=== PATIENT | male | born 1985 | race Caucasian/White ===

== ENCOUNTER 2019-09-06 10:30 | Inpatient (IN) | payer OTHER ==
[2019-09-06 10:59] VITALS: BMI 27.6
--- NOTE | 2019-09-06 11:50 | HP ---
CIWA Score Nausea/Vomitin-Mild Nausea/No Vomiting Muscle Tremors: 4-Moderate,w/Arms Extend Anxiety: 4-Mod. Anxious/Guarded Agitation: 3 Paroxysmal Sweats: 4-Forehead w/Sweat Beads Orientation: 1-Uncertain about Date Tacttile Disturbances: 0-None Auditory Disturbances: 0-None Visual Disturbances: 2-Mild Sensitivity Headache: 4-Moderately Severe (intoxication due to alcohol) CIWA-Ar Total Score: 23 - Admission Criteria OASAS Guidelines: Admission for Medically Managed Detox: Requires at least one of the followin. CIWA greater than 12 2. Seizures within the past 24 hours 3. Delirium tremens within the past 24 hours 4. Hallucinations within the past 24 hours 5. Acute intervention needed for co occurring medical disorder 6. Acute intervention needed for co occurring psychiatric disorder 7. Severe withdrawal that cannot be handled at a lower level of care (continued vomiting, continued diarrhea, abnormal vital signs) requiring intravenous medication and/or fluids 8. Admitting History and Physical - Admission History of Present Illness: 34 year old male with history of alcohol dependence with withdrawals. He started drinking at the age of 24. He has been drinking recently binging up to 3 bottles of tequila daily. He last drank 1 day ago and blacked out and ended up in [facility] and given ativan there and ECG done due to palpitations because he substituted his drinking with gabapentin at very high doses. He was cleared and told to go to alcohol detox. See D/C papers from [facility]. He drank in the afternoon yesterday. He denies smoking ciggarettes and never smoked PMH: Anemia, Cirrhosis of liver Psurg: None He is domiciled but multiple relapses has occurred. History Source: Patient Limitations to Obtaining History: No Limitations Admission [facility] Allergies/Adverse Reactions: Allergies Allergy/AdvReac Type Severity Reaction Status Date / Time Penicillins AdvReac Severe Hives Verified 09/06/19 10:53 Exam Limitations: No Limitations - Ebola screening Have you traveled outside of the country in the last 21 days: No (N) Have you had contact with anyone from an Ebola affected area: No Have you been sick,other than usual withdrawal symptoms: No Do you have a fever: No - Review of Systems Constitutional: Chills, Diaphoresis, Changes in sleep EENT: reports: No Symptoms Reported Respiratory: reports: No Symptoms reported Cardiac: reports: No Symptoms Reported GI: reports: No Symptoms Reported : reports: No Symptoms Reported Musculoskeletal: reports: No Symptoms Reported Integumentary: reports: No Symptoms Reported Neuro: reports: No Symptoms reported Endocrine: reports: No Symptoms Reported Hematology: reports: No Symptoms Reported Psychiatric: reports: Agitated, Anxious Other Systems: Reviewed and Negative Patient History - Patient Medical History Hx Anemia: Yes Hx Asthma: No Hx Chronic Obstructive Pulmonary Disease (COPD): No Hx Cancer: No Hx Cardiac Disorders: No Hx Congestive Heart Failure: No Hx Hypertension: No Hx Hypercholesterolemia: No Hx Pacemaker: No HX Cerebrovascular Accident: No Hx Seizures: No Hx Dementia: No Hx Diabetes: No Hx Gastrointestinal Disorders: No Hx Liver Disease: Yes (cirrhosis) Hx Genitourinary Disorders: No Hx Sexually Transmitted Disorders: No Hx Renal Disease (ESRD): No Hx Thyroid Disease: No Hx Human Immunodeficiency Virus (HIV): No Hx Hepatitis C: No Hx Depression: No Hx Suicide Attempt: No Hx Bipolar Disorder: No Hx Schizophrenia: No - Patient Surgical History Past Surgical History: No - PPD History Previous Implant?: No Documented Results: Negative w/o proof Implanted On Prior [facility] Admission?: No PPD to be Administered?: Yes - Smoking Cessation Smoking history: Never smoked Have you smoked in the past 12 months: No Hx Chewing Tobacco Use: No Initiated information on smoking cessation: No - Substance & Tx. History Hx Alcohol Use: Yes (3 bottles of tequila) Substance Use Type: Alcohol Hx Substance Use Treatment: Yes (detox at [facility] [place]) - Substances abused Alcohol Substance route: Oral Frequency: Daily Amount used: 1-2.5 LITERS OF TEQUILA Age of first use: 24 Date of last use: 09/05/19 Admission Physical Exam [facility] - Vital Signs Vital Signs: Vital Signs - 24 hr 09/06/19 10:45 Temperature 98.4 F Pulse Rate 96 H Respiratory 18 Rate Blood Pressure 130/75 - Physical General Appearance: Yes: Mild Distress HEENTM: Yes: EOMI, Hearing grossly Normal, Normal ENT Inspection, Normocephalic , Normal Voice, BERTRAND, Pharynx Normal, Tm's normal Respiratory: Yes: Chest Non-Tender, Lungs Clear, Normal Breath Sounds, No Respiratory Distress, No Accessory Muscle Use Neck: Yes: No masses,lesions,Nodules, Supple, Trachea in good position Breast: Yes: Within Normal Limits Cardiology: Yes: Regular Rhythm, Regular Rate, S1, S2 Abdominal: Yes: Normal Bowel Sounds, Non Tender, Flat, Soft Genitourinary: Yes: Within Normal Limits Back: Yes: Normal Inspection Musculoskeletal: Yes: full range of Motion, Gait Steady, Pelvis Stable Extremities: Yes: Normal Capillary Refill, Normal Range of Motion, Non-Tender, Tremors Neurological: Yes: cardroom attendant II-XII NML intact, Fully Oriented, Alert, Motor Strength 5/5, Normal Mood/Affect, Normal Response Integumentary: Yes: Normal Color, Warm Lymphatic: Yes: Within Normal Limits - Diagnostic (1) Alcohol dependence with uncomplicated withdrawal Current Visit: Yes Status: Acute (2) Cirrhosis Current Visit: Yes Status: Acute Screened but not Admitted - Documentation of Visit Screened but not Admitted: No Breathalyzer - Breathalyzer Breathalyzer: 0.035 Inpatient Rehab Admission - Rehab Decision to Admit Inpatient rehab admission?: No
[2019-09-06] MEDS ORDERED: MENTHOL/PHENOL 1 EACH UD MM PRN (11:56)
[2019-09-06] MEDS ORDERED: MAGNESIUM CITRATE 300 ML BOTTLE PO PRN (11:56)
[2019-09-06] MEDS ORDERED: MAG HYDROX/AL HYDROX/SIMETH 30 ML UNIT-DOSE CUP PO PRN (11:56)
[2019-09-06] MEDS ORDERED: diazePAM 5 MG TABLET PO PRN (11:56)
[2019-09-06] MEDS ORDERED: ACETAMINOPHEN 325 MG TABLET (FP) PO PRN ×2 (11:56)
[2019-09-06] MEDS ORDERED: BISMUTH SUBSALICYLATE 524 MG/30 ML UD PO PRN (11:56)
[2019-09-06] MEDS ORDERED: METHOCARBAMOL 500 MG TABLET PO PRN (11:56)
[2019-09-06] MEDS ORDERED: IBUPROFEN 400 MG TABLET (FP) PO PRN (11:56)
[2019-09-06] MEDS ORDERED: MAGNESIUM HYDROX 2400MG/30ML ORAL SUSPENSION 30 ML CUP PO PRN (11:56)
--- NOTE | 2019-09-06 12:44 | EKG ---
Test Reason : Blood Pressure : / mmHG Vent. Rate : 086 BPM Atrial Rate : 086 BPM P-R Int : 124 ms QRS Dur : 090 ms QT Int : 372 ms P-R-T Axes : 049 063 053 degrees QTc Int : 445 ms NORMAL SINUS RHYTHM NORMAL ECG NO PREVIOUS ECGS AVAILABLE Confirmed by DENISE MCCRAY, ABNER ([id number]) on 09/06/2019 12:44:22 PM Referred By: Confirmed By:ABNER WALKER MD
[2019-09-06] MEDS: diazePAM 5 MG TABLET PO SCH ×2 (13:19→22:13)
[2019-09-06 14:13] LABS: HEMATOCRIT 44.1 % (35.4-49); HEMOGLOBIN 15.1 GM/dL (11.7-16.9); MCH 32.9 pg (25.7-33.7); MCHC 34.2 g/dl (32.0-35.9); MEAN CELL VOLUME 96.3 fl (80-96); MEAN PLT VOLUME 8.1 fl (7.5-11.1); PLATELET COUNT 84 K/MM3 (134-434); RBC 4.58 M/mm3 (4.00-5.60); RDW 13.8 % (11.9-15.9); WHITE BLOOD COUNT 6.3 K/mm3 (4.0-10.0)
[2019-09-06 14:23] LABS: ALBUMIN 4.1 g/dl (3.4-5.0); BILIRUBIN,TOTAL 2.7 mg/dL (0.2-1); BLOOD UREA NITROGEN 13.2 mg/dL (7-18); CALCIUM 9.1 mg/dL (8.5-10.1); CREATININE 0.7 mg/dL (0.55-1.3); POTASSIUM 3.9 mmol/L (3.5-5.1); TOT PROT 7.6 g/dl (6.4-8.2)
[2019-09-06] MEDS: THIAMINE HCL 100 MG TABLET (FP) PO SCH (22:13)
[2019-09-07] MEDS: hydrOXYzine PAMOATE 25 MG CAPSULE (FP) PO PRN (01:14)
[2019-09-07] MEDS: diazePAM 5 MG TABLET PO SCH (05:25)
--- NOTE | 2019-09-07 10:06 | PN ---
S CIWA - CIWA Score Nausea/Vomitin-Mild Nausea/No Vomiting Muscle Tremors: 2 Anxiety: 3 Agitation: 3 Paroxysmal Sweats: No Perspiration Orientation: 0-Oriented Tacttile Disturbances: 1-Very Mild Itch/Numbness Auditory Disturbances: 0-None Visual Disturbances: 0-None Headache: 2-Mild CIWA-Ar Total Score: 12 S Progress Note (SOAP) Subjective: alert,irritable,anxious,interrupted sleep,tremor Objective: 09/07/19 10:03 Vital Signs Temperature 98.2 F 09/07/19 09:42 Pulse Rate 86 09/07/19 09:42 Respiratory Rate 18 09/07/19 09:42 Blood Pressure 120/77 09/07/19 09:42 O2 Sat by Pulse Oximetry (%) Laboratory Last Values WBC 6.3 K/mm3 (4.0-10.0) 09/06/19 12:20 RBC 4.58 M/mm3 (4.00-5.60) 09/06/19 12:20 Hgb 15.1 GM/dL (11.7-16.9) 09/06/19 12:20 Hct 44.1 % (35.4-49) 09/06/19 12:20 MCV 96.3 fl (80-96) H 09/06/19 12:20 MCH 32.9 pg (25.7-33.7) 09/06/19 12:20 MCHC 34.2 g/dl (32.0-35.9) 09/06/19 12:20 RDW 13.8 % (11.9-15.9) 09/06/19 12:20 Plt Count 84 K/MM3 (134-434) L 09/06/19 12:20 MPV 8.1 fl (7.5-11.1) 09/06/19 12:20 Sodium 138 mmol/L (136-145) 09/06/19 12:20 Potassium 3.9 mmol/L (3.5-5.1) 09/06/19 12:20 Chloride 102 mmol/L (98-107) 09/06/19 12:20 Carbon Dioxide 29 mmol/L (21-32) 09/06/19 12:20 Anion Gap 7 MMOL/L (8-16) L 09/06/19 12:20 BUN 13.2 mg/dL (7-18) 09/06/19 12:20 Creatinine 0.7 mg/dL (0.55-1.3) 09/06/19 12:20 Est GFR (CKD-EPI)AfAm 144.72 09/06/19 12:20 Est GFR (CKD-EPI)NonAf 124.87 09/06/19 12:20 Random Glucose 95 mg/dL (74-106) 09/06/19 12:20 Calcium 9.1 mg/dL (8.5-10.1) 09/06/19 12:20 Total Bilirubin 2.7 mg/dL (0.2-1) H 09/06/19 12:20 AST 86 U/L (15-37) H 09/06/19 12:20 ALT 84 U/L (13-61) H 09/06/19 12:20 Alkaline Phosphatase 120 U/L (45-117) H 09/06/19 12:20 Total Protein 7.6 g/dl (6.4-8.2) 09/06/19 12:20 Albumin 4.1 g/dl (3.4-5.0) 09/06/19 12:20 Assessment: 09/07/19 10:04 withdrawal symptom Plan: continue detox,regimen changed from librium to ativan,history of cirrhosis, elevation af bilirubin,alt,ast,alk phosphatase patione ia also on gabapentini 300 mgs po tid,confirmed by pharmacist,repeat cmp,inr in am
--- NOTE | 2019-09-07 10:07 | PN ---
[facility] Progress Note Note: addendum regimen chaned from valium to ativan
[2019-09-07] MEDS ORDERED: LORazepam 1 MG TABLET PO PRN (10:09)
[2019-09-07] MEDS: PRENATAL VITAMINS W/ FOLIC ACID TABLET (FP) PO SCH (10:11)
[2019-09-07] MEDS: LORazepam 2 MG TABLET PO SCH ×3 (11:40→22:18)
[2019-09-07] MEDS: GABAPENTIN 300 MG CAPSULE (FP) PO SCH ×2 (13:39→22:18)
[2019-09-07] MEDS: THIAMINE HCL 100 MG TABLET (FP) PO SCH (22:18)
[2019-09-08] MEDS ORDERED: diazePAM 5 MG TABLET PO SCH (06:00)
[2019-09-08] MEDS: LORazepam 2 MG TABLET PO SCH ×4 (06:24→22:08)
[2019-09-08] MEDS: GABAPENTIN 300 MG CAPSULE (FP) PO SCH ×3 (06:24→22:08)
[2019-09-08] MEDS: PRENATAL VITAMINS W/ FOLIC ACID TABLET (FP) PO SCH (10:56)
--- NOTE | 2019-09-08 13:52 | PN ---
[facility] CIWA - CIWA Score Nausea/Vomitin-Mild Nausea/No Vomiting Muscle Tremors: 2 Anxiety: 3 Agitation: 0-Normal Activity Paroxysmal Sweats: 2 Orientation: 0-Oriented Tacttile Disturbances: 1-Very Mild Itch/Numbness Auditory Disturbances: 0-None Visual Disturbances: 1-Very Mild Sensitivity Headache: 0-None Present CIWA-Ar Total Score: 10 S Progress Note (SOAP) Subjective: c/o of feeling anxious, chills, interrupted sleep Objective: 09/08/19 13:51 Vital Signs Temperature 98.1 F 09/08/19 11:00 Pulse Rate 98 H 09/08/19 11:00 Respiratory Rate 18 09/08/19 11:00 Blood Pressure 134/78 09/08/19 11:00 O2 Sat by Pulse Oximetry (%) Laboratory Last Values WBC 6.3 K/mm3 (4.0-10.0) 09/06/19 12:20 RBC 4.58 M/mm3 (4.00-5.60) 09/06/19 12:20 Hgb 15.1 GM/dL (11.7-16.9) 09/06/19 12:20 Hct 44.1 % (35.4-49) 09/06/19 12:20 MCV 96.3 fl (80-96) H 09/06/19 12:20 MCH 32.9 pg (25.7-33.7) 09/06/19 12:20 MCHC 34.2 g/dl (32.0-35.9) 09/06/19 12:20 RDW 13.8 % (11.9-15.9) 09/06/19 12:20 Plt Count 84 K/MM3 (134-434) L 09/06/19 12:20 MPV 8.1 fl (7.5-11.1) 09/06/19 12:20 Sodium 138 mmol/L (136-145) 09/06/19 12:20 Potassium 3.9 mmol/L (3.5-5.1) 09/06/19 12:20 Chloride 102 mmol/L (98-107) 09/06/19 12:20 Carbon Dioxide 29 mmol/L (21-32) 09/06/19 12:20 Anion Gap 7 MMOL/L (8-16) L 12/18/19 12:20 BUN 13.2 mg/dL (7-18) 09/06/19 12:20 Creatinine 0.7 mg/dL (0.55-1.3) 09/06/19 12:20 Est GFR (CKD-EPI)AfAm 144.72 09/06/19 12:20 Est GFR (CKD-EPI)NonAf 124.87 09/06/19 12:20 Random Glucose 95 mg/dL (74-106) 09/06/19 12:20 Calcium 9.1 mg/dL (8.5-10.1) 09/06/19 12:20 Total Bilirubin 2.7 mg/dL (0.2-1) H 09/06/19 12:20 AST 86 U/L (15-37) H 09/06/19 12:20 ALT 84 U/L (13-61) H 09/06/19 12:20 Alkaline Phosphatase 120 U/L (45-117) H 09/06/19 12:20 Total Protein 7.6 g/dl (6.4-8.2) 09/06/19 12:20 Albumin 4.1 g/dl (3.4-5.0) 09/06/19 12:20 RPR Titer Nonreactive (NONREACTIVE) 09/06/19 12:20 Assessment: 09/08/19 13:51 AOX3 NO ACUTE DISTRESS FULL ROM NO GAIT DISTURBANCE AMBULATING IN THE UNIT WITHDRAWAL SX Plan: INCREASE PO FLUIDS CONTINUE DETOX CONTINUE TO MONITOR
[2019-09-08] MEDS: MELATONIN 5 MG TABLETS PO PRN (22:08)
[2019-09-08] MEDS: THIAMINE HCL 100 MG TABLET (FP) PO SCH (22:08)
[2019-09-09] MEDS ORDERED: diazePAM 5 MG TABLET PO ONE (06:00)
[2019-09-09] MEDS: LORazepam 1 MG TABLET PO SCH ×4 (06:06→22:11)
[2019-09-09] MEDS: GABAPENTIN 300 MG CAPSULE (FP) PO SCH ×3 (06:07→22:10)
[2019-09-09] MEDS: PRENATAL VITAMINS W/ FOLIC ACID TABLET (FP) PO SCH (10:13)
--- NOTE | 2019-09-09 12:00 | PN ---
[facility] CIWA - CIWA Score Nausea/Vomitin-Mild Nausea/No Vomiting Muscle Tremors: 2 Anxiety: 1-Mildly Anxious Agitation: 1-Slight > Activity Paroxysmal Sweats: 1-Minimal Palms Moist Orientation: 0-Oriented Tacttile Disturbances: 0-None Auditory Disturbances: 0-None Visual Disturbances: 0-None Headache: 1-Very Mild CIWA-Ar Total Score: 7 B[facility] Progress Note (SOAP) Subjective: admitted for alcohol detox O: Vital Signs - 24 hr 09/08/19 09/08/19 09/09/19 18:27 20:50 03:30 Temperature 98.1 F 98.6 F Pulse Rate 82 93 H Respiratory 16 17 18 Rate Blood Pressure 126/73 123/70 09/09/19 09/09/19 06:56 09:40 Temperature 97.7 F 98.1 F Pulse Rate 91 H 91 H Respiratory 18 18 Rate Blood Pressure 101/71 102/59 L Laboratory Tests 09/06/19 09/06/19 09/06/19 12:20 12:20 12:20 WBC 6.3 RBC 4.58 Hgb 15.1 Hct 44.1 MCV 96.3 H MCH 32.9 MCHC 34.2 RDW 13.8 Plt Count 84 L MPV 8.1 Sodium 138 Potassium 3.9 Chloride 102 Carbon Dioxide 29 Anion Gap 7 L BUN 13.2 Creatinine 0.7 Est GFR (CKD-EPI)AfAm 144.72 Est GFR (CKD-EPI)NonAf 124.87 Random Glucose 95 Calcium 9.1 Total Bilirubin 2.7 H AST 86 H ALT 84 H Alkaline Phosphatase 120 H Total Protein 7.6 Albumin 4.1 RPR Titer Nonreactive increased liver enzymes/bilirubin a/p: AUD- continue detox protocol, d/c in 2 days
[2019-09-09] MEDS: THIAMINE HCL 100 MG TABLET (FP) PO SCH (22:11)
[2019-09-09] MEDS: MELATONIN 5 MG TABLETS PO PRN (22:11)
[2019-09-10] MEDS ORDERED: LORazepam 0.5 MG TABLET PO PRN
[2019-09-10] MEDS: LORazepam 0.5 MG TABLET PO SCH ×4 (05:33→22:23)
[2019-09-10] MEDS: GABAPENTIN 300 MG CAPSULE (FP) PO SCH ×3 (05:33→22:23)
[2019-09-10] MEDS: PRENATAL VITAMINS W/ FOLIC ACID TABLET (FP) PO SCH (10:05)
[2019-09-10] MEDS: hydrOXYzine PAMOATE 25 MG CAPSULE (FP) PO PRN (10:06)
--- NOTE | 2019-09-10 10:54 | PN ---
[facility] CIWA - CIWA Score Nausea/Vomitin-No Nausea/No Vomiting Muscle Tremors: None Anxiety: 2 Agitation: 0-Normal Activity Paroxysmal Sweats: 2 Orientation: 0-Oriented Tacttile Disturbances: 0-None Auditory Disturbances: 0-None Visual Disturbances: 0-None Headache: 0-None Present CIWA-Ar Total Score: 4 S Progress Note (SOAP) Subjective: c/o mild withdrawal symptoms. Objective: 09/10/19 10:52 Vital Signs 09/10/19 09/10/19 09/10/19 03:30 05:53 09:48 Temperature 97.7 F 98 F Pulse Rate 75 84 Respiratory 18 18 16 Rate Blood Pressure 101/59 L 119/79 Laboratory Last Values WBC 6.3 K/mm3 (4.0-10.0) 09/06/19 12:20 RBC 4.58 M/mm3 (4.00-5.60) 09/06/19 12:20 Hgb 15.1 GM/dL (11.7-16.9) 09/06/19 12:20 Hct 44.1 % (35.4-49) 09/06/19 12:20 MCV 96.3 fl (80-96) H 09/06/19 12:20 MCH 32.9 pg (25.7-33.7) 09/06/19 12:20 MCHC 34.2 g/dl (32.0-35.9) 09/06/19 12:20 RDW 13.8 % (11.9-15.9) 09/06/19 12:20 Plt Count 84 K/MM3 (134-434) L 09/06/19 12:20 MPV 8.1 fl (7.5-11.1) 09/06/19 12:20 Sodium 138 mmol/L (136-145) 09/06/19 12:20 Potassium 3.9 mmol/L (3.5-5.1) 09/06/19 12:20 Chloride 102 mmol/L (98-107) 09/06/19 12:20 Carbon Dioxide 29 mmol/L (21-32) 09/06/19 12:20 Anion Gap 7 MMOL/L (8-16) L 09/06/19 12:20 BUN 13.2 mg/dL (7-18) 09/06/19 12:20 Creatinine 0.7 mg/dL (0.55-1.3) 09/06/19 12:20 Est GFR (CKD-EPI)AfAm 144.72 09/06/19 12:20 Est GFR (CKD-EPI)NonAf 124.87 09/06/19 12:20 Random Glucose 95 mg/dL (74-106) 09/06/19 12:20 Calcium 9.1 mg/dL (8.5-10.1) 09/06/19 12:20 Total Bilirubin 2.7 mg/dL (0.2-1) H 09/06/19 12:20 AST 86 U/L (15-37) H 09/06/19 12:20 ALT 84 U/L (13-61) H 09/06/19 12:20 Alkaline Phosphatase 120 U/L (45-117) H 09/06/19 12:20 Total Protein 7.6 g/dl (6.4-8.2) 09/06/19 12:20 Albumin 4.1 g/dl (3.4-5.0) 09/06/19 12:20 RPR Titer Nonreactive (NONREACTIVE) 09/06/19 12:20 Labs noted. Assessment: 09/10/19 10:52 AOX3, in no acute respiratory distress. Full ROM, ambulating in the unit. Mild Withdrawal symptoms. For d/c tomorrow. 09/10/19 10:54 Plan: continue detox. D/C in AM.
--- NOTE | 2019-09-10 18:11 | CONSULT ---
[facility] Psychiatric Consult - Data Date of interview: 09/10/19 Admission source: [facility] Identifying data: Patient is a 34 year old single male, without children , domiciled, and currently employed. This is patient's first admission to detox at [facility]. Patient admitted to for alcohol dependence. Substance Abuse History: Smoking Cessation. Smoking history: Never smoked. Have you smoked in the past 12 months: No. Hx Chewing Tobacco Use: No. Initiated information on smoking cessation: No. - Substance & Tx. History. Hx Alcohol Use: Yes (3 bottles of tequila). Substance Use Type: Alcohol. Hx Substance Use Treatment: Yes (detox at [facility]). - Substances abused. Alcohol. Substance route: Oral. Frequency: Daily. Amount used: 1- 2.5 LITERS OF TEQUILA. Age of first use: 24. Date of last use: 09/05/19 Medical History: anemia, cirrhosis of the liver. Psychiatric History: Patient denies history of psychiatric hospitalizations, outpatient care, and suicide attempt. He reports history of admission to detox at [facility] several months ago in which he was prescribed gabapentin 300mg for withdrawal symptoms. At present patient reports stable mood. Patient denies thoughts or urges to hurt self or others. Physical/Sexual Abuse/Trauma History: denies. Mental Status Exam - Mental Status Exam Alert and Oriented to: Time, Place, Person Cognitive Function: Good Patient Appearance: Well Groomed Mood: Euthymic Affect: Appropriate Patient Behavior: Appropriate, Cooperative Speech Pattern: Clear, Appropriate Voice Loudness: Normal Thought Process: Intact, Goal Oriented Thought Disorder: Not Present Hallucinations: Denies Suicidal Ideation: Denies Homicidal Ideation: Denies Insight/Judgement: Poor Sleep: Fair Appetite: Fair Muscle strength/Tone: Normal Gait/Station: Normal Psychiatric Findings - Problem List ([place] 1, 2,3) (1) Alcohol dependence with uncomplicated withdrawal Current Visit: Yes Status: Acute - Initial Treatment Plan Initial Treatment Plan: Psychoeducation provided. Detoxification in progress. Observation.
[2019-09-10] MEDS: THIAMINE HCL 100 MG TABLET (FP) PO SCH (22:23)
[2019-09-10] MEDS: MELATONIN 5 MG TABLETS PO PRN (22:23)
[2019-09-11] MEDS ORDERED: LORazepam 0.5 MG TABLET PO ONE (05:00)
[2019-09-11] MEDS: GABAPENTIN 300 MG CAPSULE (FP) PO SCH (05:32)
[2019-09-11 06:10] VITALS: BP 93/55; PULSE 70; TEMP 97.5
--- NOTE | 2019-09-11 09:03 | DS ---
[facility] Detox Discharge Summary Admission Date: 09/06/19 Discharge Date: 09/11/19 - History Present History: Alcohol Dependence - Physical Exam Results Vital Signs: Vital Signs Temperature 97.5 F L 09/11/19 05:05 Pulse Rate 70 09/11/19 05:05 Respiratory Rate 20 09/11/19 05:05 Blood Pressure 93/55 L 09/11/19 05:05 O2 Sat by Pulse Oximetry (%) Pertinent Admission Physical Exam Findings: Vital Signs Temperature 97.5 F L 09/11/19 05:05 Pulse Rate 70 09/11/19 05:05 Respiratory Rate 20 09/11/19 05:05 Blood Pressure 93/55 L 09/11/19 05:05 O2 Sat by Pulse Oximetry (%) Laboratory Tests 09/06/19 09/06/19 09/06/19 12:20 12:20 12:20 WBC 6.3 RBC 4.58 Hgb 15.1 Hct 44.1 MCV 96.3 H MCH 32.9 MCHC 34.2 RDW 13.8 Plt Count 84 L MPV 8.1 Sodium 138 Potassium 3.9 Chloride 102 Carbon Dioxide 29 Anion Gap 7 L BUN 13.2 Creatinine 0.7 Est GFR (CKD-EPI)AfAm 144.72 Est GFR (CKD-EPI)NonAf 124.87 Random Glucose 95 Calcium 9.1 Total Bilirubin 2.7 H AST 86 H ALT 84 H Alkaline Phosphatase 120 H Total Protein 7.6 Albumin 4.1 RPR Titer Nonreactive aaox3 ambulating no acute distress - Treatment Hospital Course: Detox Protocol Followed, Detoxed Safely, Responded well, Discharged Condition Good, Rehab Referral Accepted Patient has Accepted a Rehab Referral to: pt declined rehab; referral provided - Medication Discharge Medications: Ambulatory Orders Gabapentin 300 mg PO TID 09/06/19 - Diagnosis (1) Alcohol dependence with uncomplicated withdrawal Current Visit: Yes Status: Chronic (2) Cirrhosis Current Visit: Yes Status: Chronic Qualifiers: Ascites presence: unspecified - AMA Did Patient Leave Against Medical Advice: No
== END 2019-09-11 09:05 | disposition home or self-care (01) | DRG 775 ==
LOC: YASAS 10:30 → Y6N 12:22
PROVIDERS: ADMIT Allergy & Immunology; ATTEND Allergy & Immunology
PROC: HZ2ZZZZ Detoxification Services for Substance Abuse Treatment (ICD-10-PCS; principal; 2019-09-06)
DX: F10.230 Alcohol dependence with withdrawal, uncomplicated (principal); K74.60 Unspecified cirrhosis of liver; R01.1 Cardiac murmur, unspecified; Z88.0 Allergy status to penicillin
CPT/HCPCS: 36415; 80053; 85027; 86593; 93005; 93010

== ENCOUNTER 2024-11-01 11:17 | Inpatient (IN) | payer OTHER ==
[2024-11-01 11:45] VITALS: BMI 31.3
[2024-11-01] MEDS ORDERED: chlordiazePOXIDE HCL 25 MG CAPSULE ONE (12:48)
[2024-11-01 12:52] LABS: BASO % 1.3 % (0-2.0); EOS % 5.9 % (0-4.5); HEMATOCRIT 45.4 % (35.4-49); HEMOGLOBIN 15.1 GM/dL (11.7-16.9); LYMPH % 31.3 % (8-40); MCH 31.5 pg (25.7-33.7); MCHC 33.2 g/dl (32.0-35.9); MEAN CELL VOLUME 95.1 fl (80-96); MONO % 9.1 % (3.8-10.2); NEUT % 52.4 % (42.8-82.8); RBC 4.78 M/mm3 (4.00-5.60); RDW 14.2 % (11.9-15.9); WHITE BLOOD COUNT 4.1 K/mm3 (4.0-10.0)
[2024-11-01] MEDS: chlordiazePOXIDE HCL 25 MG CAPSULE PO ONE (12:55)
[2024-11-01 12:59] LABS: PLATELET COUNT 17 10^3/uL (134-434)
[2024-11-01 13:02] LABS: INR 1.47 (0.83-1.09)
[2024-11-01 13:05] LABS: ACTIVATED PTT 37.4 SECONDS (25.2-36.5)
[2024-11-01 13:09] LABS: CHLORIDE 105 mmol/L (98-107); POTASSIUM 3.3 mmol/L (3.5-5.1); SODIUM 143 mmol/L (136-145)
[2024-11-01 13:11] LABS: ALBUMIN 3.8 g/dl (3.4-5.0); ANION GAP 10 mmol/L (4-13); BLOOD UREA NITROGEN 8.3 mg/dL (7-18); CALCIUM 8.5 mg/dL (8.5-10.1); CO2 29 mmol/L (21-32)
[2024-11-01 13:12] LABS: GLUCOSE,RANDOM 97 mg/dL (74-106)
[2024-11-01 13:14] LABS: CREATININE 0.6 mg/dL (0.55-1.3); SGOT/AST 161 U/L (15-37); SGPT/ALT 122 U/L (13-61)
[2024-11-01 13:15] LABS: BILIRUBIN,TOTAL 2.1 mg/dL (0.2-1)
[2024-11-01 13:17] LABS: ALK PHOS 116 U/L (45-117)
[2024-11-01 13:35] LABS: LACTIC ACID 2.3 mmol/L (0.4-2.0)
[2024-11-01 14:05] LABS: HIV INTERPRETATION NEGATIVE (NEGATIVE)
[2024-11-01] MEDS: FOLIC ACID INJECTION - 1 MG, THIAMINE HCL 100 MG, MULTIVIT INJECTION ADULT 10 ML in SOD... IVPB ONE (14:23)
[2024-11-01] MEDS: PANTOPRAZOLE SODIUM 40 MG in SODIUM CHLORIDE 100 ML IVPB ONE (17:56)
[2024-11-01] MEDS ORDERED: PANTOPRAZOLE SODIUM 40 MG VIAL ONE (17:59)
[2024-11-01] MEDS: PANTOPRAZOLE SODIUM 40 MG VIAL IVPUSH SCH (18:12)
[2024-11-01] MEDS: LORazepam 2 MG/ML SDV VIAL IVPUSH PRN (19:39)
[2024-11-01] MEDS: LACTATED RINGERS SOLUTION 1,000 ML/1,000 ML INFUS.BAG IV SCH (21:01)
[2024-11-01] MEDS: THIAMINE HCL 200 MG/2 ML VIAL IVPB SCH (23:28)
[2024-11-01] MEDS: IBUPROFEN 600 MG TABLET (FP) PO ONE (23:55)
[2024-11-02 03:42] LABS: PH,URINE 7.5 (5.0-8.0); URINE APPEARANCE CLEAR; URINE BILIRUBIN NEGATIVE (NEGATIVE); URINE COLOR DK YELLOW; URINE GLUCOSE (UA) NEGATIVE (NEGATIVE); URINE KETONE 1+ (NEGATIVE); URINE LEUK ESTERASE NEGATIVE (NEGATIVE); URINE NITRITE NEGATIVE (NEGATIVE); URINE PROTEIN TRACE (NEGATIVE)
[2024-11-02 03:54] LABS: METHADONE, UR NEGATIVE (NEGATIVE); URINE AMPHETAMINES NEGATIVE (NEGATIVE); URINE BARBITURATES NEGATIVE (NEGATIVE)
[2024-11-02 03:55] LABS: OPIATES, URI NEGATIVE (NEGATIVE); PHENCYCLIDINE,URINE NEGATIVE (NEGATIVE)
[2024-11-02 03:56] LABS: COCAINE, UR NEGATIVE (NEGATIVE); URINE BENZODIAZEPINES POSITIVE (NEGATIVE)
[2024-11-02] MEDS: MELATONIN 5 MG TABLETS PO PRN (04:01)
[2024-11-02 09:14] LABS: BASO % 0.4 % (0-2.0); EOS % 3.5 % (0-4.5); HEMATOCRIT 36.5 % (35.4-49); HEMOGLOBIN 12.5 GM/dL (11.7-16.9); LYMPH % 29.2 % (8-40); MCH 32.2 pg (25.7-33.7); MCHC 34.3 g/dl (32.0-35.9); MEAN CELL VOLUME 93.9 fl (80-96); MEAN PLT VOLUME 7.1 fl (7.5-11.1); MONO % 10.4 % (3.8-10.2); NEUT % 56.5 % (42.8-82.8); RBC 3.88 M/mm3 (4.00-5.60); RDW 14.3 % (11.9-15.9); WHITE BLOOD COUNT 2.1 K/mm3 (4.0-10.0)
[2024-11-02 09:17] LABS: PLATELET COUNT 30 10^3/uL (134-434)
[2024-11-02 09:36] LABS: POTASSIUM 3.6 mmol/L (3.5-5.1)
[2024-11-02 09:48] LABS: ALBUMIN 3.1 g/dl (3.4-5.0); CALCIUM 7.8 mg/dL (8.5-10.1)
[2024-11-02 09:49] LABS: BLOOD UREA NITROGEN 14.2 mg/dL (7-18)
[2024-11-02 09:52] LABS: CREATININE 0.5 mg/dL (0.55-1.3)
[2024-11-02 09:53] LABS: BILIRUBIN,TOTAL 2.7 mg/dL (0.2-1); TOT PROT 5.9 g/dl (6.4-8.2)
[2024-11-02 10:39] LABS: INR 1.64 (0.83-1.09)
[2024-11-02 10:48] LABS: MAGNESIUM 1.7 mg/dL (1.8-2.4)
[2024-11-02 10:52] LABS: PHOSPHOROUS 2.6 mg/dL (2.5-4.9)
[2024-11-02] MEDS ORDERED: LORazepam 1 MG TABLET PO PRN (12:52)
[2024-11-02] MEDS: MAGNESIUM OXIDE 400 MG TABLET (FP) PO ONE (13:20)
[2024-11-02] MEDS: LORazepam 1 MG TABLET PO ONE (13:22)
[2024-11-02] MEDS: PrednisoLONE 15 MG/5 ML UNIT-DOSE CUP PO SCH (15:24)
[2024-11-02] MEDS: LORazepam 1 MG TABLET PO SCH (17:11)
[2024-11-03 07:47] LABS: HEMATOCRIT 40.7 % (35.4-49); HEMOGLOBIN 13.6 GM/dL (11.7-16.9); MCH 31.7 pg (25.7-33.7); MCHC 33.4 g/dl (32.0-35.9); MEAN PLT VOLUME 7.6 fl (7.5-11.1); RBC 4.29 M/mm3 (4.00-5.60); RDW 14.3 % (11.9-15.9); WHITE BLOOD COUNT 2.3 K/mm3 (4.0-10.0)
[2024-11-03 07:51] LABS: INR 1.6 (0.83-1.09); PROTHROMBIN TIME (PATIENT) 17.6 SEC (9.7-13.0)
[2024-11-03 07:54] LABS: ACTIVATED PTT 31.8 SECONDS (25.2-36.5)
[2024-11-03 07:55] LABS: PLATELET COUNT 31 10^3/uL (134-434)
[2024-11-03 07:58] LABS: POTASSIUM 3.8 mmol/L (3.5-5.1)
[2024-11-03 08:01] LABS: ALBUMIN 3.3 g/dl (3.4-5.0); BLOOD UREA NITROGEN 11.1 mg/dL (7-18); CALCIUM 8.5 mg/dL (8.5-10.1); MAGNESIUM 1.8 mg/dL (1.8-2.4)
[2024-11-03 08:04] LABS: CREATININE 0.6 mg/dL (0.55-1.3); PHOSPHOROUS 1.5 mg/dL (2.5-4.9)
[2024-11-03 08:05] LABS: BILIRUBIN,TOTAL 4.4 mg/dL (0.2-1); TOT PROT 6.6 g/dl (6.4-8.2)
[2024-11-03] MEDS ORDERED: ENOXAPARIN NA (PORCINE) 40 MG/0.4 ML DISP.SYRIN SQ SCH (10:00)
[2024-11-03 10:22] LABS: RETICULOCYTES 1.81 % (0.5-1.5)
[2024-11-03] MEDS: NAPH,MB-DB/K PH,MBDB POWDER PACKET PO SCH (13:40)
[2024-11-03 14:50] VITALS: BP 108/80; PULSE 81; RESP 17; TEMP 98.4
[2024-11-04] MEDS ORDERED: LORazepam 1 MG TABLET PO SCH (05:00)
[2024-11-04] MEDS ORDERED: PANTOPRAZOLE 40 MG TABLET PO SCH (10:00)
[2024-11-05] MEDS ORDERED: LORazepam 0.5 MG TABLET PO PRN
[2024-11-05] MEDS ORDERED: LORazepam 0.5 MG TABLET PO SCH (05:00)
[2024-11-06] MEDS ORDERED: LORazepam 0.5 MG TABLET PO ONE (05:00)
== END 2024-11-03 17:43 | disposition left against medical advice (07) | DRG 280 ==
LOC: JER 11:17 → JERBED 16:09 → J6S 18:41
PROVIDERS: ADMIT Internal Medicine; ATTEND Psychiatry & Neurology Pain Medicine
PROC: 30233R1 Transfusion of Nonautologous Platelets into Peripheral Vein, Percutaneous Approach (ICD-10-PCS; principal; 2024-11-02)
DX: K70.10 Alcoholic hepatitis without ascites (principal); K70.30 Alcoholic cirrhosis of liver without ascites; D69.6 Thrombocytopenia, unspecified; K92.2 Gastrointestinal hemorrhage, unspecified; E80.6 Other disorders of bilirubin metabolism; F10.239 Alcohol dependence with withdrawal, unspecified; R44.3 Hallucinations, unspecified
CPT/HCPCS: 36415; 36430; 74181-TC; 76705-TC; 80048; 80053; 80076; 80307; 81003; 82140; 82248; 82272; 83010; 83605; 83615; 83690; 83735; 84100; 85025; 85027; 85045; 85384; 85610; 85730; 86803; 86850; 86880; 86900; 86901; 87086; 87389; 93005; 93010; 99291; P9037